=== PATIENT | male | born 1940 | race Caucasian/White ===

== ENCOUNTER 2017-08-24 17:37 | Emergency (ER) | payer MEDICARE, BC ==
[~2017-08-24] VITALS: Ht 172.7 cm; Wt 79.8 kg
[2017-08-24 17:49] VITALS: BP 112/67
[2017-08-24 19:09] LABS: BASOPHILS % (AUTO) 0.5 % (0.0-2.0); EOSINOPHILS % (AUTO) 0.1 % (0.0-3.0); LYMPHOCYTES % (AUTO) 19.1 % (20.0-45.0); MEAN CORPUSCULAR HEMOGLOBIN 28.1 PG (27.0-31.0); MEAN CORPUSCULAR HGB CONC 30.9 G/DL (32.0-36.0); MEAN CORPUSCULAR VOLUME 91 FL (80-99); MEAN PLATELET VOLUME 8.1 FL (6.5-10.1); MONOCYTES % (AUTO) 14.2 % (1.0-10.0); NEUTROPHILS % (AUTO) 66.2 % (45.0-75.0); PLATELET COUNT 232 K/UL (150-450); RED BLOOD COUNT 4.39 M/UL (4.70-6.10); RED CELL DISTRIBUTION WIDTH 12.6 % (11.6-14.8); WHITE BLOOD COUNT 10.2 K/UL (4.8-10.8)
[2017-08-24 19:15] LABS: ANION GAP 12 mmol/L (5-15); CALCIUM 9.6 MG/DL (8.5-10.1); CARBON DIOXIDE 24 MMOL/L (21-32); CHLORIDE 103 MMOL/L (98-107); CREATININE 4.5 MG/DL (0.55-1.30); POTASSIUM 3.5 MMOL/L (3.5-5.1); SODIUM 139 MMOL/L (136-145)
[2017-08-24 19:28] LABS: ALANINE AMINOTRANSFERASE 22 U/L (12-78); ALBUMIN/GLOBULIN RATIO 0.7 (1.0-2.7); ASPARTATE AMINO TRANSFERASE 27 U/L (15-37); CKMB 2.2 NG/ML (0.0-3.6); TOTAL PROTEIN 7.6 G/DL (6.4-8.2)
[2017-08-24 19:30] VITALS: BP 126/74
[2017-08-24 20:20] VITALS: BP 136/78
[2017-08-24] MEDS ORDERED: SODIUM BICARBO650 MG PO (20:22)
[2017-08-24] MEDS ORDERED: CATAPRES-TTS 21 EACH TDERMAL (20:25)
[2017-08-24] MEDS ORDERED: TESTOSTERONE5 G1 (20:26)
[2017-08-24] MEDS ORDERED: [UNRECOGNIZED DRUG - OTHER] MC (20:27)
[2017-08-24] MEDS ORDERED: FERROUS SULFAT325 MG ORAL (20:28)
[2017-08-24] MEDS ORDERED: CARVEDILOL12.5 MG ORAL (20:28)
[2017-08-24] MEDS ORDERED: METOLAZONE2.5 MG PO (20:29)
[2017-08-24] MEDS ORDERED: TADALAFIL5 MG PO (20:30)
[2017-08-24] MEDS ORDERED: TAMSULOSIN HCL0.4 MG ORAL ×2 (20:30→20:37)
[2017-08-24] MEDS ORDERED: FOLIC ACID0.4 MG ORAL (20:31)
[2017-08-24] MEDS ORDERED: MULTIVITAMINS1 EAC2 ORAL (20:36)
[2017-08-24] MEDS ORDERED: METOPROLOL SUCC25 MG ORAL (20:37)
--- NOTE | 2017-08-24 21:20 | Emergency Room Report ---
History of Present Illness General Chief Complaint: Dizziness Source: Medical Record Present Illness HPI 77-year-old M presents to ED for evaluation. Patient states he's been having flulike symptoms for the last 3 days. Bodyaches, chills, cough. Dry. Afebrile. Patient was at urgent care today and they called 911. Patient was hypotensive. Given IV fluids. Patient states he feels dizzy and weak. Denies chest pain or shortness of breath. No other aggravating or leading factors. Denies any other associated symptoms Allergies: Uncoded Allergies: GADOLINIUM (Allergy, Unknown, 08/24/17) Patient History Past Medical History: none Past Surgical History: none Pertinent Family History: none Social History: Denies: smoking, alcohol use, drug use Immunizations: UTD Reviewed Nursing Documentation: PMH: Agreed, PSxH: Agreed Nursing Documentation-PMH Past Medical History: No History, Except For Hx Cancer: Yes - colonic polyps, gastric ulcer Review of Systems All Other Systems: negative except mentioned in HPI Physical Exam Vital Signs Date Time Temp Pulse Resp B/P (MAP) Pulse Ox O2 Delivery O2 Flow Rate FiO2 08/24/17 17:30 98.8 90 16 103/63 98 Room Air Sp02 EP Interpretation: reviewed, normal General Appearance: no apparent distress, alert, GCS 15, non-toxic Head: normocephalic, atraumatic Eyes: bilateral eye normal inspection, bilateral eye PERRL ENT: hearing grossly normal, normal pharynx, no angioedema, normal voice Neck: full range of motion, supple/symm/no masses Respiratory: chest non-tender, lungs clear, normal breath sounds, speaking full sentences Cardiovascular #1: regular rate, rhythm, no edema Cardiovascular #2: 2+ carotid (R), 2+ carotid (L), 2+ radial (R), 2+ radial (L) , 2+ dorsalis pedis (R), 2+ dorsalis pedis (L) Gastrointestinal: normal bowel sounds, non tender, soft, non-distended, no guarding, no rebound Rectal: deferred Genitourinary: normal inspection, no CVA tenderness Musculoskeletal: back normal, gait/station normal, normal range of motion, non- tender Neurologic: alert, oriented x3, responsive, motor strength/tone normal, sensory intact, speech normal Psychiatric: judgement/insight normal, memory normal, mood/affect normal, no suicidal/homicidal ideation Reflexes: 3+ bicep (R), 3+ bicep (L), 3+ tricep (R), 3+ tricep (L), 3+ knee (R) , 3+ knee (L) Skin: normal color, no rash, warm/dry, well hydrated Lymphatic: no adenopathy Medical Decision Making Diagnostic Impression: Primary Impression: [id number] kidney injury Qualified Codes: N17.9 - Acute kidney failure, unspecified; N18.9 - Chronic kidney disease, unspecified Additional Impressions: Atrial fibrillation Qualified Codes: I48.91 - Unspecified atrial fibrillation Hypotension Qualified Codes: I95.9 - Hypotension, unspecified ER Course Hospital Course 77-year-old male presents ED complaining of bodyaches and cough. Hypotensive and weak Differential diagnoses include: Pneumonia, UTI, sepsis, dehydration, PA/ unstable angina Clinical course Patient placed on stretcher. On radiation monitor with stable vitals are ED course. After initial history and physical, I ordered labs, IV fluids, EKG, chest x-ray, influenza swab Labs - BUN/Cr 82/4.5, no leukocytosis, troponins 0.035, influenza negative EKG - afib, RBBB CXR - no acute process I discussed findings with the patient. Patient states he does he has kidney disease but states his creatinine is usually 3. Likely acute on chronic renal failure due to dehydration Troponin 0.035; denies any chest pain Recommended patient be admitted for IV hydration and observation Case discussed with Dr Juarez and they agreed to admit patient to their service for further care and support I feel this is a highly complex case requiring extensive working including EKG/ Rhythm strip, Xray/CT/US, Blood/urine lab work, repeat exams while in ED, and administration of strong opiates/narcotics for pain control, admission to hospital or close patient follow up. Diagnosis - acute on chronic kidney disease, atrial fibrillation, hypotension Patient admitted to telemetry in serious condition Labs Test 08/24/17 18:23 White Blood Count 10.2 K/UL (4.8-10.8) Red Blood Count 4.39 M/UL (4.70-6.10) Hemoglobin 12.3 G/DL (14.2-18.0) Hematocrit 39.9 % (42.0-52.0) Mean Corpuscular Volume 91 FL (80-99) Mean Corpuscular Hemoglobin 28.1 PG (27.0-31.0) Mean Corpuscular Hemoglobin Concent 30.9 G/DL (32.0-36.0) Red Cell Distribution Width 12.6 % (11.6-14.8) Platelet Count 232 K/UL (150-450) Mean Platelet Volume 8.1 FL (6.5-10.1) Neutrophils (%) (Auto) 66.2 % (45.0-75.0) Lymphocytes (%) (Auto) 19.1 % (20.0-45.0) Monocytes (%) (Auto) 14.2 % (1.0-10.0) Eosinophils (%) (Auto) 0.1 % (0.0-3.0) Basophils (%) (Auto) 0.5 % (0.0-2.0) Sodium Level 139 MMOL/L (136-145) Potassium Level 3.5 MMOL/L (3.5-5.1) Chloride Level 103 MMOL/L (98-107) Carbon Dioxide Level 24 MMOL/L (21-32) Anion Gap 12 mmol/L (5-15) Blood Urea Nitrogen 82 mg/dL (7-18) Creatinine 4.5 MG/DL (0.55-1.30) Estimat Glomerular Filtration Rate mL/min (>60) Glucose Level 125 MG/DL (74-106) Calcium Level 9.6 MG/DL (8.5-10.1) Total Bilirubin 0.4 MG/DL (0.2-1.0) Aspartate Amino Transf (AST/SGOT) 27 U/L (15-37) Alanine Aminotransferase (ALT/SGPT) 22 U/L (12-78) Alkaline Phosphatase 79 U/L (46-116) Total Creatine Kinase 122 U/L (26-308) Creatine Kinase MB 2.2 NG/ML (0.0-3.6) Creatine Kinase MB Relative Index 1.8 Troponin I 0.035 ng/mL (0.000-0.056) Total Protein 7.6 G/DL (6.4-8.2) Albumin 3.2 G/DL (3.4-5.0) Globulin 4.4 g/dL Albumin/Globulin Ratio 0.7 (1.0-2.7) EKG Diagnostic Results Rate: normal Rhythm: other - afib ST Segments: other - RBBB ASA given to the pt in ED: No Rhythm Strip Diag. Results EP Interpretation: yes Rhythm: no PVC's, no ectopy Chest X-Ray Diagnostic Results Chest X-Ray Diagnostic Results : Chest X-Ray Ordered: Yes # of Views/Limited/Complete: 1 View Indication: Other - cough EP Interpretation: Yes Interpretation: no consolidation, no effusion, no pneumothorax, no acute cardiopulmonary disease Impression: No acute disease Electronically Signed by: Electronically signed by Abrahan Marquez MD Last Vital Signs Date Time Temp Pulse Resp B/P (MAP) Pulse Ox O2 Delivery O2 Flow Rate FiO2 08/24/17 20:20 96 22 136/78 97 Room Air 08/24/17 19:30 98.7 Status: improved Disposition: ADMITTED INPATIENT Condition: Serious Referrals: NON PHYSICIAN (PCP) ABRAHAN MARQUEZ M.D. Aug 24, 2017 21:20
[2017-08-24 21:30] VITALS: BP 121/99
[2017-08-24 23:00] VITALS: BP 140/89
[2017-08-24 23:16] LABS: APPEARANCE,URINE CLEAR; KETONES,URINE NEGATIVE (NEGATIVE); LEUKOCYTE ESTERASE ,URINE NEGATIVE (NEGATIVE); NITRITE,URINE NEGATIVE (NEGATIVE); PH,URINE 5 (4.5-8.0); PROTEIN,URINE 3+ (NEGATIVE); UROBILINOGEN,URINE NORMAL MG/DL (0.0-1.0)
[2017-08-24 23:33] LABS: BACTERIA,URINE FEW /HPF; RBC,URINE 0-2 /HPF (0 - 0); WBC,URINE 0-2 /HPF (0 - 0)
[2017-08-25 00:35] VITALS: BP 136/86
[2017-08-25 01:00] LABS: ANION GAP 13 mmol/L (5-15); CALCIUM 9.4 MG/DL (8.5-10.1); CARBON DIOXIDE 24 MMOL/L (21-32); CHLORIDE 104 MMOL/L (98-107); CREATININE 4.1 MG/DL (0.55-1.30); POTASSIUM 3.2 MMOL/L (3.5-5.1); SODIUM 141 MMOL/L (136-145)
[2017-08-25 01:05] LABS: ALANINE AMINOTRANSFERASE 16 U/L (12-78); ALBUMIN/GLOBULIN RATIO 0.7 (1.0-2.7); ASPARTATE AMINO TRANSFERASE 24 U/L (15-37); TOTAL PROTEIN 7.2 G/DL (6.4-8.2)
[2017-08-25] MEDS ORDERED: TYLENOL325 MG ORAL (01:18)
[2017-08-25 01:45] VITALS: BP 135/87
[2017-08-25 01:50] VITALS: BP 135/87
--- NOTE | 2017-08-25 10:24 | Diagnostic Imaging Report ---
Indication: Reason For Exam: COUGH Technique: One view of the chest Comparison: none Findings: No acute infiltrates, effusions, or congestion. Tortuous calcified aorta. Normal heart size. Upper mediastinum unremarkable. Impression: No acute process.
--- NOTE | 2017-08-27 00:26 | Cardiology Report ---
APPROVED REPORT EKG Measurement Heart [id number] Atrial fibrillation Right bundle branch block Abnormal ECG
== END 2017-08-25 01:50 | disposition home or self-care (01) ==
LOC: EDBD 17:37 → EMR 20:05
DX: N17.9 Acute kidney failure, unspecified (principal); I48.91 Unspecified atrial fibrillation; I95.9 Hypotension, unspecified; R53.1 Weakness; I45.10 Unspecified right bundle-branch block; R05 Cough
CPT/HCPCS: 36415; 71010; 80053; 81003; 82550; 82553; 84484; 85025; 86710; 93005; 96360; 96361; 99284